=== PATIENT | male | born 1950 | race Caucasian/White ===

== ENCOUNTER 2020-12-25 15:39 | Emergency (ER) | payer BC, MEDICARE ==
[2020-12-25] MEDS ORDERED: Sodium Chloride 0.9% 10 ML Syringe FLUSH PRN (16:27)
[2020-12-25] MEDS ORDERED: Iopamidol 755 Mg/ML 100 ML Bottle IVPUSH ONE (16:36)
--- NOTE | 2020-12-25 18:35 | US ---
Left lower extremity deep venous ultrasound: Duplex and color Doppler evaluation was obtained of the left common femoral, proximal greater saphenous, superficial femoral, popliteal, posterior tibial and peroneal veins. Proximal greater saphenous vein also was evaluated as well as right common femoral vein. Comparison: No prior venous imaging is available. Findings: Common femoral veins on both sides show normal phasic flow and augmentation. Left superficial femoral through the distal peritoneal and anterior tibial veins show evidence of thrombosis. Impression: 1. Deep venous thrombosis from the proximal superficial femoral vein inferiorly through the peroneal and anterior tibial veins on the left side. 2. Both common femoral veins are patent. Diagnostic code #5
--- NOTE | 2020-12-25 18:38 | CT ---
CT chest Technique: Multiple axial sections through the chest were obtained. Intravenous contrast was utilized. Study has been performed as a pulmonary angiogram protocol. Findings: Pulmonary emboli are seen within the distal right and left main pulmonary arteries. Pulmonary emboli are seen within the proximal left upper lung and right upper lung branches. Additional pulmonary emboli are seen within the segmental and subsegmental branches of the right and left lower pulmonary arteries. Slightly prominent lymph nodes are seen within the mediastinum. Largest lymph node measures 1.5 cm. Upper visualized abdominal structures show nothing acute. Increased density is seen posteriorly within both lung bases. Lesser density is seen within the upper lungs. Uncertain how much of this represents COVID pneumonia versus change from pulmonary emboli. Heart shows slightly larger right ventricle than the left ventricle which is felt compatible with mild right heart pressures. Impression: 1. Prominent pulmonary emboli within both distal main pulmonary arteries extending into the segmental and subsegmental branches of both lower lung arteries as well as pulmonary embolism extending into both upper lungs. 2. Mildly prominent lymph nodes within the mediastinum which most likely represent enlargement from the parenchymal densities. 3. Increased density within both lower lungs and upper lungs. Uncertain how much of this represents change from COVID pneumonia versus change from pulmonary emboli. 4. Heart shows a mild change from increased right heart pressures. Diagnostic code #5
--- NOTE | 2020-12-25 18:47 | EDM.PDOC ---
ED HPI GENERAL MEDICAL PROBLEM - General Chief Complaint: Lower Extremity Injury/Pain Stated Complaint: LEG PAIN Time Seen by Provider: 12/25/20 15:58 Source of Information: Reports: Patient, Family History Limitations: Reports: No Limitations - History of Present Illness INITIAL COMMENTS - FREE TEXT/NARRATIVE: The patient presents with left leg pain. He says he was diagnosed with COVID 19 on December 05. He is out of quarantine. He still has a cough. He has been more shot of breath lately and coughing up some blood at times. He has pain in the left leg for over a week. He did not injure his leg. He has some swelling in the left leg also. He has no fever or chills. He denies chest pain, abdominal pain, or diarrhea. He does not have much of an appetite. He has nausea sometimes. He has no history of DVT or PE. He does smoke. Onset: Gradual Duration: Day(s): Location: Reports: Lower Extremity, Left Quality: Reports: Ache Severity: Moderate Improves with: Reports: None Worsens with: Reports: None Associated Symptoms: Reports: Cough, Nausea/Vomiting, Shortness of Breath. Denies: Chest Pain, Fever/Chills, Headaches Left Lower Leg Pain Score (Numeric/FACES): 4 - Related Data Allergies Allergy/AdvReac Type Severity Reaction Status Date / Time No Known Allergies Allergy Verified 12/25/20 16:05 Home Meds: Home Meds Apixaban [Eliquis] 5 mg PO BID #30 tablet 12/25/20 [Rx] Past Medical History - Infectious Disease History Infectious Disease History: Reports: Novel Coronavirus Social & Family History - Tobacco Use Tobacco Use Status *Q: Current Every Day Tobacco User Years of Tobacco use: 10 Packs/Tins Daily: 1 - Caffeine Use Caffeine Use: Reports: Soda - Recreational Drug Use Recreational Drug Use: No Review of Systems - Review of Systems Review Of Systems: See Below Constitutional: Reports: Weakness. Denies: Chills, Fever Eyes: Reports: No Symptoms Ears: Reports: No Symptoms Nose: Reports: No Symptoms Mouth/Throat: Reports: No Symptoms Respiratory: Reports: Shortness of Breath, Cough, Hemoptysis Cardiovascular: Reports: No Symptoms GI/Abdominal: Reports: No Symptoms Genitourinary: Reports: No Symptoms Musculoskeletal: Reports: Other (Left leg pain and swelling) ED EXAM, GENERAL - Physical Exam Exam: See Below Exam Limited By: No Limitations General Appearance: Alert, No Apparent Distress Ears: Normal External Exam Nose: Normal Inspection Head: Atraumatic, Normocephalic Neck: Normal Inspection Respiratory/Chest: No Respiratory Distress, Lungs Clear, Normal Breath Sounds Cardiovascular: Regular Rate, Rhythm, No Edema, No Murmur GI/Abdominal: Soft, Non-Tender, No Organomegaly, No Mass Back Exam: Normal Inspection Extremities: Other (Left calf tenderness with vericose veins and mild edema. Good sensation and pulses distally) #1 Interpretation EKG Date: 12/25/20 Time: 16:47 Rhythm: NSR Rate (Beats/Min): 90 [place]: Normal P-Wave: Present QRS: Normal ST-T: Normal QT: Normal Course - Vital Signs Last Recorded V/S: Last Vital Signs Temp 99.5 F 12/25/20 16:13 Pulse 95 12/25/20 16:13 Resp 20 12/25/20 16:13 BP 101/70 12/25/20 16:13 Pulse Ox 96 12/25/20 16:13 - Orders/Labs/Meds Orders: Active Orders 24 hr Category Date Time Status Cardiac Monitoring [RC] . DIRECTED Care 12/25/20 16:27 Active Peripheral IV Care [RC] . DIRECTED Care 12/25/20 16:28 Active Sodium Chloride 0.9% [Saline Flush] Med 12/25/20 16:27 Active 10 ml FLUSH ASDIRECTED PRN Peripheral IV Insertion Adult [OM.PC] Stat Oth 12/25/20 16:27 Ordered Medication Orders Sodium Chloride (Sodium Chloride 0.9% 10 Ml Syringe) 10 ml FLUSH ASDIRECTED PRN PRN Reason: Keep Vein Open Last Admin: 12/25/20 18:14 Dose: 10 ml Documented by: [email or web address] Labs: Laboratory Tests 12/25/20 12/25/20 12/25/20 Range/Units 16:40 16:40 17:44 WBC 7.07 (4.23-9.07) K/mm3 RBC 4.33 L (4.63-6.08) M/mm3 Hgb 14.0 (13.7-17.5) gm/dl Hct 40.9 (40.1-51.0) % MCV 94.5 H (79.0-92.2) fl MCH 32.3 H (25.7-32.2) pg MCHC 34.2 (32.2-35.5) g/dl RDW Std Deviation 39.9 (35.1-43.9) fL Plt Count 278 (163-337) K/mm3 MPV 9.2 L (9.4-12.3) fl Neut % (Auto) 72.9 H (34.0-67.9) % Lymph % (Auto) 11.7 L (21.8-53.1) % [place] % (Auto) 12.0 (5.3-12.2) % Eos % (Auto) 2.7 (0.8-7.0) Baso % (Auto) 0.4 (0.1-1.2) % Neut # (Auto) 5.15 (1.78-5.38) K/mm3 Lymph # (Auto) 0.83 L (1.32-3.57) K/mm3 [place] # (Auto) 0.85 H (0.30-0.82) K/mm3 Eos # (Auto) 0.19 (0.04-0.54) K/mm3 Baso # (Auto) 0.03 (0.01-0.08) K/mm3 Manual Slide Review D-Dimer, Quantitative > 35.20 H (0.19-0.50) mg/L Sodium 139 (136-145) mEq/L Potassium 3.3 L (3.5-5.1) mEq/L Chloride 104 (98-107) mEq/L Carbon Dioxide 23 (21-32) mEq/L Anion Gap 15.3 H (5-15) BUN 22 H (7-18) mg/dL Creatinine 1.2 (0.7-1.3) mg/dL Est Cr Clr Drug Dosing 65.66 mL/min Estimated GFR (MDRD) > 60 (>60) mL/min BUN/Creatinine Ratio 18.3 H (14-18) Glucose 93 (70-99) mg/dL Calcium 8.4 L (8.5-10.1) mg/dL Total Bilirubin 1.0 (0.2-1.0) mg/dL AST 62 H (15-37) U/L ALT 48 (16-63) U/L Alkaline Phosphatase 57 (46-116) U/L Troponin I < 0.017 (0.00-0.056) ng/mL C-Reactive Protein 20.1 H* (<1.0) mg/dL Total Protein 7.2 (6.4-8.2) g/dl Albumin 2.2 L (3.4-5.0) g/dl Globulin 5.0 gm/dL Albumin/Globulin Ratio 0.4 L (1-2) Meds: Medications Generic Name Dose Route Start Last Admin Trade Name Freq PRN Reason Stop Dose Admin Sodium Chloride 10 ml 12/25/20 16:27 12/25/20 18:14 Sodium Chloride 0.9% 10 Ml Syringe FLUSH 10 ml ASDIRECTED PRN Administration Keep Vein Open Discontinued Medications Generic Name Dose Route Start Last Admin Trade Name Freq PRN Reason Stop Dose Admin Apixaban 10 mg 12/25/20 18:57 Apixaban 5 Mg Tab PO 12/25/20 18:58 ONETIME ONE Iopamidol 100 ml 12/25/20 16:36 12/25/20 18:14 Iopamidol 755 Mg/Ml 100 Ml Bottle IVPUSH 12/25/20 16:37 100 ml ONETIME ONE Administration - Re-Assessments/Exams Free Text/Narrative Re-Assessment/Exam: 12/25/20 18:50 I ordered an IV saline lock, EKG, CT angio of his chest, labs and an US of his left leg. His EKG shows a NSR with no acute changes. His CBC looks good. His D-dimer was very elevated at 35.2. His K was low at 3.3. His AST is elevated at 62. His troponin is negative. His CRP is elevated at 20.1. The US of his leg shows deep venous thrombosis from the proximal superficial femoral vein inferiorly through the peroneal and anterior tibial veins on the left side. Both common femoral veins are patent. His CT angio of his chest shows prominent pulmonary emboli within both distal main pulmonary arteries extending into the segmental and subsegmental branches of both lower lung arteries as well as pulmonary embolism extending into both upper lungs. Mildly prominent lymph nodes within the mediastinum which most likely represent enlargement from the parenchymal densities. Increased density within both lower lungs and upper lungs. Uncertain how much of this represents change from COVID pneumonia versus change from pulmonary emboli. I will give him a dose of eliquis here and a prescription for more. Departure - Departure Time of Disposition: 19:10 Disposition: Home, Self-Care 01 Condition: Good Clinical Impression: Pulmonary embolism Qualifiers: Pulmonary embolism type: other Chronicity: acute Acute cor pulmonale presence: without acute cor pulmonale Qualified Code(s): I26.99 - Other pulmonary embolism without acute cor pulmonale DVT (deep venous thrombosis) Qualifiers: DVT location: lower extremity Affected thrombotic vein of extremity: peroneal Chronicity: acute Laterality: left Qualified Code(s): I82.452 - Acute embolism and thrombosis of left peroneal vein - Discharge Information *PRESCRIPTION DRUG MONITORING PROGRAM REVIEWED*: Not Applicable *COPY OF PRESCRIPTION DRUG MONITORING REPORT IN PATIENT ARIN: Not Applicable Prescriptions: Apixaban [Eliquis] 5 mg PO BID #30 tablet Referrals: Tra Pablo PA-C [Primary Care Provider] - 1 Week Forms: ED Department Discharge Additional Instructions: Take the eliquis 10mg or 2 pills 2 times per day for 7 days and then 5mg or 1 pill 2 times per day after that. Follow up with Tra Pablo within a week. Please return if you are worse such as more shortness of breath, chest pain or not feeling right. Sepsis Event Note (ED) - Focused Exam Vital Signs: Vital Signs Temp Pulse Resp BP Pulse Ox 12/25/20 16:13 99.5 F 95 20 101/70 96 - My Orders Last 24 Hours: My Active Orders 12/25/20 16:27 Cardiac Monitoring [RC] . DIRECTED Sodium Chloride 0.9% [Saline Flush] 10 ml FLUSH ASDIRECTED PRN Peripheral IV Insertion Adult [OM.PC] Stat 12/25/20 16:28 Peripheral IV Care [RC] . DIRECTED - Assessment/Plan Last 24 Hours: My Active Orders 12/25/20 16:27 Cardiac Monitoring [RC] . DIRECTED Sodium Chloride 0.9% [Saline Flush] 10 ml FLUSH ASDIRECTED PRN Peripheral IV Insertion Adult [OM.PC] Stat 12/25/20 16:28 Peripheral IV Care [RC] . DIRECTED
[2020-12-25] MEDS ORDERED: Apixaban 5 MG Tab PO ONE (18:57)
== END 2020-12-25 19:21 | disposition home or self-care (01) ==
LOC: JD.ED 15:39
DX: I82.452 Acute embolism and thrombosis of left peroneal vein (principal); I26.99 Other pulmonary embolism without acute cor pulmonale; Z72.0 Tobacco use; Z86.16 Personal history of COVID-19; Z79.01 Long term (current) use of anticoagulants
CPT/HCPCS: 36415; 71275; 80053; 84484; 85025; 85379; 86140; 93005; 93971; 99285; A9270; Q9967; 93010; 99284